=== PATIENT | female | born 1990 ===

== ENCOUNTER 2021-09-11 23:25 | Emergency (ER) | payer SELFPAY ==
--- NOTE | 2021-09-11 23:51 | Emergency Department Report ---
ED General Adult HPI - General Chief complaint: Arrhythmia/Palpitations Stated complaint: PALPITATIONS Time Seen by Provider: 09/11/21 23:33 Source: patient, EMS (Verbal report received from emergency medical services. EMS documentation not available at time of chart dictation ), RN notes reviewed Mode of arrival: Stretcher Limitations: No Limitations - History of Present Illness Initial comments: The patient was evaluated in the emergency department for symptoms described in the history of present illness. He/she was evaluated in the context of the global COVID-19 pandemic, which necessitated consideration that the patient might be at risk for infection with the virus that causes COVID-19. Institutional protocols and algorithms that pertain to the evaluation of patients at risk for COVID-19 are in a state of rapid change based on informati on released by regulatory bodies including the CDC and federal and state organizations. These policies and algorithms were followed during the patient's care in the emergency department. Please note that these policies, procedures and recommendations changed on a rapid basis. This patient is a 30-year-old female, who is not COVID-19 vaccinated, who reports that she is not , and further reports that she has not delivered her given in the past 6 weeks. Past medical history includes tobacco consumption, secondhand marijuana consumption secondary to significant other smoking marijuana, and chronically elevated blood pressure/hypertension. She was previously taking nifedipine, but was not able to continue this medicine secondary to lack of insurance, and recently started following up with a primary care doctor, who refilled her nifedipine, 30 mg. 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 She also endorses that she occasionally consumes caffeine-containing drinks She presents to the ER today with a complaint of painless palpitations. She reports chronically elevated blood pressure, and reports that she was at [facility] yesterday, was found to have elevated blood pressure, given clonidine, and reports that her blood pressure improved, and she was subsequently discharged. She reports that earlier on this evening, she began to feel palpitations and anxiety, as well as feeling stressed out, without physical pain. The patient currently denies headache, neck pain, chest pain, abdominal pain, shortness of breath, vomiting, diarrhea. She denies leg pain, leg swelling, oral contraceptive use, DVT, pulmonary embolism risk factors. -: Sudden Consistency: intermittent Improves with: none Worsens with: none Associated Symptoms: denies other symptoms - Related Data Previous Rx's Medication Instructions Recorded Last Taken Type Nicotine Polacrilex [Nicotine Gum] 4 mg BC PRN #1 pack 09/11/21 Unknown Rx ED Review of Systems ROS: Stated complaint: PALPITATIONS Other details as noted in HPI Constitutional: denies: fever Eyes: denies: eye discharge ENT: denies: epistaxis Respiratory: denies: cough Cardiovascular: palpitations. denies: chest pain Gastrointestinal: denies: abdominal pain Neurological: denies: weakness Psychiatric: anxiety ED Past Medical Hx - Medications Home Medications: Home Medications Medication Instructions Recorded Confirmed Last Taken Type Nicotine Polacrilex [Nicotine Gum] 4 mg BC PRN #1 pack 09/11/21 Unknown Rx ED Physical Exam - General Limitations: No Limitations General appearance: alert, anxious - Head Head exam: Present: atraumatic, normocephalic - Eye Eye exam: Present: normal appearance, EOMI. Absent: nystagmus - ENT ENT exam: Present: normal exam, normal orophraynx, mucous membranes moist, normal external ear exam - Neck Neck exam: Present: normal inspection, full ROM. Absent: tenderness, meningi smus - Respiratory Respiratory exam: Present: normal lung sounds bilaterally. Absent: respiratory distress, wheezes, rales, rhonchi, stridor, decreased breath sounds - Cardiovascular Cardiovascular Exam: Present: normal rhythm, tachycardia, normal heart sounds. Absent: bradycardia, irregular rhythm, systolic murmur, diastolic murmur, rubs, gallop - GI/Abdominal GI/Abdominal exam: Present: soft. Absent: distended, tenderness, guarding, rebound, rigid, pulsatile mass - Extremities Exam Extremities exam: Present: normal inspection, full ROM, other (2+ pulses noted in the bilateral upper and lower extremities. There is no palpable cord. negative Homans sign. Muscular compartments are soft. The pelvis is stable.). Absent: pedal edema, calf tenderness - Back Exam Back exam: Present: normal inspection, full ROM. Absent: tenderness, CVA tenderness (R), CVA tenderness (L), paraspinal tenderness, vertebral tenderness - Neurological Exam Neurological exam: Present: alert, oriented X3, other (No facial droop. Tongue midline. Extraocular movements intact bilaterally. Facial sensation intact to light touch in V1, V2, V3 distribution bilaterally. 5 and a 5 strength in 4 extremities. Sensation intact to light touch in 4 extremities.). Absent: motor sensory deficit - Psychiatric Psychiatric exam: Present: anxious - Skin Skin exam: Present: warm, dry, intact, normal color. Absent: rash ED Course Vital Signs 09/12/21 09/12/21 09/12/21 00:14 00:16 00:20 Temperature 98.7 F Pulse Rate 119 H 119 H Respiratory 14 14 Rate Blood Pressure 134/87 O2 Sat by Pulse Oximetry [ Digit-Finger] 09/12/21 00:55 Temperature Pulse Rate Respiratory Rate Blood Pressure O2 Sat by Pulse 98 Oximetry [ Digit-Finger] - Reevaluation(s) Reevaluation #1: 09/11/21 23:52 Differential diagnosis, including but not limited to: Thyroid derangement, electrolyte derangement, anxiety, anemia, elevated blood pressure Assessment and plan: 30-year-old female, who who denies DVT and pulmonary embolism risk factors, who is low risk by Wells criteria for pulmonary embolism, presenting to the ER today with a complaint of painless tachycardia, and elevated blood pressure. Extensive discussion had with patient regarding need for diet and lifestyle modifications. We will obtain twelve-lead EKG, and appropriate laboratory studies. We will gena at her supportively and symptomatically. We will reassess. The patient states that she is not . Patient counseled to discontinue tobacco consumption. Counseled to complete COVID-19 vaccination series. At this point in time, the patient presents as awake, alert, oriented, sober, of sound mind, and exhibits decision-making capacity. I specifically advised her the rationale behind the recommended medical work-up, the patient articulates understanding in her own words. All questions are answered 09/12/21 01:13 Reevaluation #2: 09/11/21 23:54 Spent approximately 5 minutes counseling patient on tobacco cessation. 09/12/21 01:13 Went back to reexamine the patient. The patient is not in the room. The manager leasing caring for her is not aware of where she is. It appears that the patient has left the emergency room without telling anyone. Lathmaker/nursing team to call patient on listed phone number, advised her to return to the emergency room to complete her work-up/evaluation. However, she will be discharged as an elopement/discharge AMA at this time. She did not receive midazolam or any sedating medications - Pulse Oximetry Interpretation Digit-Finger Initial Pulse Oximetry Readin O2 Sat by Pulse Oximetry: 98 Actions Taken: none ED Medical Decision Making - Lab Data Result diagrams: 09/12/21 00:04 09/12/21 00:04 Vital Signs 09/11/21 23:56 O2 Sat by Pulse 98 Oximetry [ Digit-Finger] Vital Signs 09/12/21 09/12/21 09/12/21 00:14 00:16 00:19 Temperature Pulse Rate 119 H Respiratory 14 14 Rate Blood Pressure 134/87 O2 Sat by Pulse 98 Oximetry [ Digit-Finger] 09/12/21 00:20 Temperature 98.7 F Pulse Rate 119 H Respiratory Rate Blood Pressure O2 Sat by Pulse Oximetry [ Digit-Finger] Lab Results 09/12/21 09/12/21 09/12/21 Range/Units 00:04 00:04 00:04 Hgb 12.9 (10.1-14.3) gm/dl Hct 39.5 (30.3-42.9) % PT 11.9 L (12.2-14.9) Sec. INR 0.80 L (0.87-1.13) Sodium 140 (137-145) mmol/L Potassium 4.2 (3.6-5.0) mmol/L Chloride 105.2 (98-107) mmol/L Carbon Dioxide 22 (22-30) mmol/L Anion Gap 17 mmol/L BUN 21 H (7-17) mg/dL Creatinine 1.0 (0.6-1.2) mg/dL Estimated GFR > 60 ml/min BUN/Creatinine Ratio 21 % Glucose 101 H (65-100) mg/dL Calcium 8.8 (8.4-10.2) mg/dL Magnesium 1.80 (1.7-2.3) mg/dL HCG, Quant (0-4) mIU/mL 09/12/21 Range/Units 00:04 Hgb (10.1-14.3) gm/dl Hct (30.3-42.9) % PT (12.2-14.9) Sec. INR (0.87-1.13) Sodium (137-145) mmol/L Potassium (3.6-5.0) mmol/L Chloride (98-107) mmol/L Carbon Dioxide (22-30) mmol/L Anion Gap mmol/L BUN (7-17) mg/dL Creatinine (0.6-1.2) mg/dL Estimated GFR ml/min BUN/Creatinine Ratio % Glucose (65-100) mg/dL Calcium (8.4-10.2) mg/dL Magnesium (1.7-2.3) mg/dL HCG, Quant < 2 (0-4) mIU/mL - EKG Data -: EKG Interpreted by Me EKG shows normal: sinus rhythm Rate: tachycardia - EKG Data 09/11/21 23:52 Prehospital EKG is interpreted by myself at 11: 4 5 PM. Sinus rhythm, tachycardia, rate 147 bpm. High left ventricular voltage. Not a STEMI. There is no prior for comparison 09/12/21 00:18 The ER EKG is interpreted at 0100 a.m. Sinus rhythm, tachycardia, rate 116 bpm. Normal axis, normal P wave axis, high left ventricular voltage, QTC 4 6 9 ms. Abnormal EKG. Not a STEMI. Critical care attestation.: If time is entered above; I have spent that time in minutes in the direct care of this critically ill patient, excluding procedure time. ED Disposition Clinical Impression: History of tachycardia, Palpitations, COVID-19 vaccination not done, Encounter for tobacco use cessation counseling Disposition: 07 LEFT AWOL/ELOPED Is pt being admited?: No Does the pt Need Aspirin: No Condition: Undetermined Additional Instructions: Recommend that patient discontinue consumption of tobacco, alcohol, smoke pr oducts, and avoid secondhand exposure to marijuana, and smoke products. We recommend that the patient discontinue tobacco consumption, and use the prescribed nicotine gum as prescribed. We also recommend that the patient exercise on a regular basis as tolerated, continue outpatient nifedipine. We also recommend that the patient discontinue consumption of energy drinks, caffeine, and stimulants. We also recommend the patient complete a COVID-19 vaccination series. Please follow-up with a primary care doctor or microbiological lab technician within the next 2 to 3 weeks. Please return to the emergency room right away with new pain, worsened pain, migration of pain, projectile vomiting, change in mental status, confusion, inability tolerate liquid feeds, new, worsened or different symptoms not present on the initial emergency room evaluation Prescriptions: Nicotine Polacrilex [Nicotine Gum] 4 mg BC PRN #1 pack Referrals: [facility] [Provider Group] - 3-5 Days [facility] [Provider Group] - 3-5 Days Forms: Work/School Release Form(ED)
[2021-09-12 00:20] VITALS: BP 134/87
[2021-09-12 00:24] LABS: Hematocrit 39.5 % (30.3-42.9); Hemoglobin 12.9 gm/dl (10.1-14.3)
[2021-09-12 00:38] LABS: INR 0.8 (0.87-1.13)
[2021-09-12 00:41] LABS: BUN/Creatinine Ratio 21; Blood Urea Nitrogen 21 mg/dL (7-17); Calcium 8.8 mg/dL (8.4-10.2); Hemolysis Index 16
[2021-09-12] MEDS ORDERED: MIDAZOLAM 2 MG/2 ML INJ IV ONE (00:55)
--- NOTE | 2021-09-13 13:15 | Electrocardiograph Report ---
[facility] Test Date: 2021-09-12 Test Time: 00:01:00 Pat Name: CHRISTY QUIROZ Department: Room: Gender: F Can Technician: STEPH : 1990 Requested By: PAYTON STALLINGS Order Number: [id number] Reading MD: Francis Mathis Measurements Intervals [place] Rate: 116 P: 61 NC: 141 QRS: 52 QRSD: 79 T: 45 QT: 338 QTc: 469 Interpretive Statements Sinus tachycardia Otherwise normal ECG No previous ECG available for comparison Electronically Signed On 09-13-2021 13:15:18 EST by Francis Mathis
== END 2021-09-12 01:00 | disposition left against medical advice (07) ==
LOC: ED 23:25
DX: R00.2 Palpitations (principal); Z86.79 Personal history of other diseases of the circulatory system; F17.200 Nicotine dependence, unspecified, uncomplicated; Z71.6 Tobacco abuse counseling
CPT/HCPCS: 36415; 80048; 83735; 84443; 84702; 85014; 85018; 85610; 93005; 93010; 99283